=== PATIENT | female | born 1960 | race Caucasian/White ===

== ENCOUNTER 2023-08-23 22:59 | Emergency (ER) | payer MEDICARE, SELFPAY ==
[2023-08-23 23:06] VITALS: BP 131/93
--- NOTE | 2023-08-23 23:12 | ED.GENMED ---
History of Present Illness
General
Chief Complaint: Throat Problem
Time Seen by Provider: 08/23/23 23:11
Travel History
Have you had any contact with someone who has COVID-19?: No
Do you have any symptoms of coronavirus? Fever > 100 degrees, chills, cough, shortness of breath, sore throat, loss of taste or smell, muscle aches, or headache?: No
History of Present Illness
History of Present Illness:
HPI: About an hour ago, the patient was taking her pills which include calcium vitamins as well as statins. She feels that her pills got stuck. She states this has happened to her in the past and she went to [facility] and they gave her 'a shot to
dissolve it'. She has required esophageal dilatation with Dr. Bruce Everett in the past.
EXAM:
GENERAL: She is in moderate distress
HEENT: Moist oral mucosa
CARDIOVASCULAR: No murmurs, normal heart rate and rhythm, No chest wall tenderness
PULMONARY: No respiratory distress, breath sounds are clear and equal
ABDOMEN: Soft with no peritoneal signs, no tenderness
NEUROLOGIC: Excellent strength all extremities, no coordination deficits
PSYCHIATRIC: Appears rather anxious but otherwise has appropriate mental status, normal insight and judgement
EXTREMITIES: Nontender, no edema, moves all extremities equally
SKIN: No rash, no lesions
ED COURSE:
11:10 PM: I initially evaluated patient
NUMBER AND COMPLEXITY OF PROBLEMS ADDRESSED AT THE ENCOUNTER
� Chronic conditions affecting care: Has required esophageal dilatation in the past, high blood pressure, hyperlipidemia
� Acute Exacerbation and/or Progression of Chronic Illness: This is an acute problem but has had a similar episode in the past
� Differential Diagnosis includes: Pill esophagitis, esophageal obstruction
AMOUNT AND/OR COMPLEXITY OF DATA TO BE REVIEWED AND ANALYZED
� I performed an independent evaluation of and my interpretation is:
EKG:
CT:
X-rays:
Laboratory Studies: CBC and chemistries unremarkable
Other:
� Review of other/old records: No old records available for review in [facility]
� Clinical information was obtained by an independent historian: I spoke to the
� Prescriptions/Medications Considered but not given:
� Further testing considered but not performed: Considered imaging however the symptoms quickly resolved
RISK OF COMPLICATIONS AND/OR MORBIDITY OR MORTALITY OF PATIENT MANAGEMENT
� Social determinants of health affecting care: Lives at home
� Discussion with other providers:
� Escalation of care including admission/observation vs risk of discharge considered: The patient appears to be in rather significant distress. It sounds like glucagon has helped her in the past and we gave her glucagon along
with Zofran, Pepcid, and Protonix. Currently she is markedly improved with virtually no symptoms. She was able to tolerate water as of 12 AM. She appears markedly improved. She says she will we will follow-up GI here at [facility] [facility] or with Anshul
Karlos.
Phy Exam
Physical Exam
Physical Exam:
See HPI
Course
Orders/Labs/Results
Orders:
Orders
08/23/23 23:11
Famotidine [Pepcid] 20 mg IV NOW STA
Glucagon [GlucaGen] 1 mg IV NOW STA
Ondansetron Injectable [Zofran] 4 mg IV NOW STA
Pantoprazole [Protonix IV] 40 mg IV NOW STA
08/23/23 23:12
Glucagon [GlucaGen] 1 mg .ROUTE .STK-MED ONE
Ondansetron Injectable [Zofran] 4 mg .ROUTE .STK-MED ONE
08/23/23 23:25
Basic Metabolic Panel Urgent
Complete Blood Count/With Diff Urgent
Abnormal Lab Results
08/23/23
23:25
MCH 31.3 H pg
(27.0-31.0)
MPV 11.5 H fL
(7.4-10.4)
Absolute Monos (auto) 0.7 H 10^3/uL
(0.1-0.6)
BUN 29 H mg/dl
(7-17)
08/23/23 23:25
08/23/23 23:25
Vital Signs
Initial and Last Documented VS:
Initial Vital Signs
Temp Pulse Resp Pulse Ox
98.2 F 91 18 100
08/23/23 23:03 08/23/23 23:03 08/23/23 23:03 08/23/23 23:03
Last Documented Vital Signs
Temp Pulse Resp BP Pulse Ox
98.2 F 91 18 131/93 98
08/23/23 23:03 08/23/23 23:03 08/23/23 23:03 08/23/23 23:06 08/23/23 23:52
*Critical Care Note
Total Time (30-74mins, 75-104mins- exclusive of procedures): Not Applicable
ED Attending Note
-
Portions of this chart may have been created with voice recognition software.� Occasional wrong word or��sound alike� substitutions may have occurred due to the inherent limitations of voice recognition software.
Discharge Plan
Departure
Patient Disposition: Home (Routine Discharge)
Date of Disposition: 08/23/23
Time of Disposition: 23:56
Patient with high blood pressure during this ER visit?: Yes
Discharge Problem:
Pill esophagitis
Instructions: Acid reflux and gastroesophageal reflux disease in adults
Referrals:
Judson Meyers MD [Family Provider] -
Jesse Ayers MD [Active] - Follow up in 2-3 days
Activity Restrictions/Additional Instructions:
I have given you the contact information for one of our local GI doctors. You could follow-up with them or with Dr. Everett. I recommend that you take a 2-week course of [id number] omeprazole.
Interventions
Interventions:
ED- Fall Risk Assessment Last Done: 08/23/23 23:52
ED-EENT Assessment Last Done: 08/23/23 23:52
ED- Pulmonary Assessment Last Done: 08/23/23 23:52
[2023-08-23] MEDS: GlucaGen 1 MG IV (23:19)
[2023-08-23] MEDS: ZOFRAN 4 MG IV (23:19)
[2023-08-23] MEDS: PEPCID 20 MG IV (23:28)
[2023-08-23] MEDS: PROTONIX IV 40 MG IV (23:28)
[2023-08-23 23:43] LABS: % Basophils 0.6 % (0-2); % Eosinophils 1.4 % (0-6); % Immature Granulocytes 0.2 % (0-0.5); % Lymphocytes 31.9 % (20.5-51.1); % Monocytes 7.2 % (1.7-9.3); % Neutrophils 58.7 % (42.2-75.2); Absolute Basophils 0.1 10^3/uL (0-0.2); Absolute Eosinophils 0.1 10^3/uL (0-0.7); Absolute Lymphocytes 3.1 10^3/uL (1.2-3.4); Absolute Monocytes 0.7 10^3/uL (0.1-0.6); Absolute Neutrophils 5.7 10^3/uL (1.4-6.5); Hematocrit 39.1 % (37.0-47.0); Hemoglobin 13.5 g/dL (12.0-16.0); Mean Corp Hgb Conc. 34.5 g/dL (33.0-37.0); Mean Corpuscular Hgb 31.3 pg (27.0-31.0); Mean Corpuscular Volume 90.7 fL (81.0-99.0); Mean Platelet Volume 11.5 fL (7.4-10.4); Nucleated Red Blood Cells % 0 %; Platelet Count 247 10^3/uL (130-400); Red Blood Cell Count 4.31 10^6/uL (4.20-5.40); Red Cell Dist. Width 13.5 % (11.5-14.5); White Blood Cell Count 9.7 10^3/uL (4.8-10.8)
[2023-08-23 23:53] LABS: Blood Urea Nitrogen 29 mg/dl (7-17); Calcium 10.2 mg/dl (8.4-10.2); Carbon Dioxide 22 mmol/L (22-30); Chloride 106 mmol/L (98-107); Glucose 97 mg/dl (70-99); Potassium 3.6 mmol/L (3.5-5.1); Sodium 136 mmol/L (135-145); eGFR > 60.00
== END 2023-08-24 00:11 | disposition home or self-care (01) ==
LOC: EMR 22:59
PROVIDERS: EMERGENCY PHYSICIAN Emergency Medicine; FAMILY PHYSICIAN Family Medicine
DX: K20.80 Other esophagitis without bleeding (principal)
CPT/HCPCS: 99284; 96374; 96375 ×3; 80048; 85025; J1610